=== PATIENT | female | born 2000 | race Caucasian/White ===

== ENCOUNTER 2022-05-03 08:44 | Day surgery (SDC) | payer BC, SELFPAY ==
[2022-05-03] VITALS (13 sets, daily range): BP systolic 98–126; BP diastolic 49–78; PULSE 66–80; RESP 12–18; TEMP 36.2–36.8; O2SAT 98–100; BMI 23.4
[2022-05-03] MEDS: LACTATED RINGERS 1000 ML 1,000 ML 100 ML IV (09:26)
[2022-05-03] MEDS: ETHYL CHLORIDE 1 APPLICATION 1 APPLIC TOPICAL (09:28)
[2022-05-03] MEDS: SODIUM CHLORIDE 0.9 % (FLUSH) 10 ML SYRINGE IVF (09:28)
[2022-05-03 09:34] LABS: HCG Qualitative* Negative (Negative)
--- NOTE | 2022-05-03 11:04 | W.PM.ENTPROC ---
Procedure Note Date of procedure: 05/03/22 Procedure: Preoperative diagnosis chronic tonsillitis, cryptic tonsils, tonsillar hypertrophy Postoperative diagnosis same Procedure tonsillectomy Under general tracheal anesthesia patient was prepped and draped in usual fashion. The McIvor mouth gag was inserted the tongue retracted forward. The right and left tonsil were removed with a combination of needlepoint and Coblation cautery. There was minimal bleeding and all bleeding was controlled with Coblation. The nasopharynx was inspected and there is no significant adenoid tissue. The membranous tip of the uvula was amputated to prevent swelling. The patient tolerated procedure well was taken recovery in satisfactory condition. Blood loss was less than 10 mL. There were no complications Surgeon: Waqar Pandya MD
--- NOTE | 2022-05-03 11:15 | W.ANESCHARGE ---
Anesthesia Charges Start Date/Time Anesthesia Start Date: 05/03/22 Anesthesia Start Time: 10:32 Stop Date/Time Anesthesia Stop Date: 05/03/22 Anesthesia Stop Time: 11:14 Summary Emergency: No
--- NOTE | 2022-05-03 11:20 | W.ANESCHARGE ---
Anesthesia Charges Start Date/Time Anesthesia Start Date: 05/03/22 Anesthesia Start Time: 10:32 Stop Date/Time Anesthesia Stop Date: 05/03/22 Anesthesia Stop Time: 11:14 Summary Emergency: No
[2022-05-03] MEDS: IBUPROFEN 100 MG/5 ML SUSP 200 MG PO (12:05)
[2022-05-03] MEDS: ACETAMINOPHEN SUSPENSION 1 BOTTLE 320 MG PO (12:05)
== END 2022-05-03 13:32 | disposition home or self-care (01) ==
PROVIDERS: Anesthesiology; Visit Provider Otolaryngology
PROC: (CPT 42826; principal; 2022-05-03 10:30)
DX: J35.01 Chronic tonsillitis (principal)
CPT/HCPCS: 42826; 00170; 84703; 88304; A9270; J0330; J1100; J2250; J2405; J2704; J3010; J7120

== ENCOUNTER 2022-05-04 18:20 | Emergency (ER) | payer BC, SELFPAY ==
[2022-05-04 18:25] VITALS: BP 126/75; PULSE 100; RESP 18; TEMP 37.3; O2SAT 96
--- NOTE | 2022-05-04 18:40 | ED.GENADULT ---
HPI - General Adult General Chief complaint: Post Op Complication Stated complaint: Post Op Bleeding Time Seen by Provider: 05/04/22 18:24 History of Present Illness HPI narrative: This 22-year-old female had a tonsillectomy done yesterday. She called Ear Nose and Throat physician today because of some blood in the back of her throat. She was instructed to come in here for evaluation. I did receive a phone call from Dr. Tellez in this regard. The patient arrives here with normal vital signs but in discomfort as would be expected post tonsillectomy. She is not having any active bleeding currently. Related Data Home Medications Medication Instructions Recorded Confirmed albuterol sulfate 90 mcg/actuation 1 inh inhalation Q4-6H PRN 05/01/22 05/03/22 aerosol inhaler bupropion HCl 150 mg 24 hr tablet, 150 mg PO DAILY 05/01/22 05/03/22 extended release (Wellbutrin XL) melatonin 10 mg capsule 10 mg PO HS PRN 05/01/22 05/03/22 sertraline 100 mg tablet (Zoloft) 200 mg PO DAILY 05/01/22 05/03/22 Previous Rx's Medication Instructions Recorded ondansetron 4 mg disintegrating 4 mg PO Q8H #10 tabs 05/03/22 tablet oxycodone 5 mg/5 mL oral solution 7 mg (7 mL) PO Q4-6H PRN pain #250 05/03/22 mL Allergies Allergy/AdvReac Type Severity Reaction Status Date / Time No Known Drug Allergies Allergy Verified 05/03/22 09:03 Review of Systems Status of ROS: Reports: 10 or more systems reviewed and unremarkable except as noted in History and below Narrative: Constitutional: No fevers, no weight gain or loss. Eyes: No discharge. No vision changes. HENT: Sore throat status post tonsillectomy. She reports some bleeding prior to arrival. Cardiovascular: No chest pain, no palpitations. Respiratory: No shortness of breath, no wheezes, no cough. Gastrointestinal: No abdominal pain, no vomiting, no diarrhea. Genitourinary: No dysuria, no hematuria. Musculoskeletal: Normal range of motion. Skin: No rashes, no pruritis. Neurological: No dizziness, weakness, sensory change, speech change. Endo/Heme/Allergies: No bruising or bleeding. No polydipsia. Pysch: no suicidality, no anxiety, no insomnia. All other systems reviewed and are negative. [facility] Medical History (Updated 05/04/22 @ 18:44 by Tonio Latif MD) Exercise-induced asthma Generalized anxiety disorder Social History How often do you have a drink containing alcohol: monthly or less How many standard drinks containing alcohol do you have on a typical day: 1 or 2 AUDIT-C Alcohol total score: 1 Non-prescribed substance use: denies use Caffeine: Yes (1 DAILY) Are you using contraception or practicing any form of control: No Exam Narrative: Exam Narrative: Constitutional: Well-developed, well-nourished, no acute distress. HEENT: Normocephalic, atraumatic. Oropharynx shows normal scarring in the posterior oropharynx status post tonsillectomy. There is no sign of active bleeding or presence of any clotting. Neck: Normal range of motion. Nontender. Supple. Heart: Intact distal pulses. Lungs: No chest discomfort. No wheezes, rhonchi, or rales. Abdomen: Nontender. Back: Normal range of motion. Extremities: Normal range of motion. No injury. Skin: Intact. No rash. Warm. No erythema or pallor. Neurologic: No altered sensation. No weakness. Alert and oriented. Psychiatric: No suicidality. No anxiety or depression. No insomnia. Nursing notes and vitals signs are reviewed. Const: Vital Signs, click to edit/add: Vital Signs - 24 hr 05/04/22 18:25 Temperature 99.2 F Pulse Rate [Right Pulse Oximeter] 100 Respiratory Rate 18 Blood Pressure [Ri ght Upper Arm] 126/75 Pulse Oximetry 96 Oxygen Delivery Me thod Room Air Course Vital Signs Vital signs: Initial Vital Signs Temperature 99.2 F 05/04/22 18:25 Temperature Source Temporal Artery Scan 05/04/22 18:25 Pulse Rate 100 05/04/22 18:25 Respiratory Rate 18 05/04/22 18:25 Blood Pressure 126/75 05/04/22 18:25 Blood Pressure Mean 92 05/04/22 18:25 Blood Pressure Position Sitting 05/04/22 18:25 Pulse Oximetry 96 05/04/22 18:25 Oxygen Delivery Method 05/04/22 18:25 Vital Signs Temperature 99.2 F 05/04/22 18:25 Pulse Rate 100 05/04/22 18:25 Respiratory Rate 18 05/04/22 18:25 Blood Pressure 126/75 05/04/22 18:25 Pulse Oximetry 96 05/04/22 18:25 Oxygen Delivery Method 05/04/22 18:25 Temperature 99.2 F 05/04/22 18:25 Pulse Rate 100 05/04/22 18:25 Respiratory Rate 18 05/04/22 18:25 Blood Pressure 126/75 05/04/22 18:25 Pulse Oximetry 96 05/04/22 18:25 Oxygen Delivery Method 05/04/22 18:25 Medical Decision Making MDM Narrative Medical decision making narrative: This patient comes in for evaluation of bleeding status post tonsillectomy. She is not showing any sign of active bleeding and does not have any clot present. Ear Nose and Throat physician stated that if this was the case she could be observed for about an hour and then return home. She did receive an intramuscular injection of morphine 10 mg for additional pain relief. Discharge Plan Discharge Clinical Impression: Postoperative haemorrhage of tonsil Patient Disposition: Home, Self-Care Condition: Stable Additional Instructions: Continue current plans. Take medication as needed and indicated. Follow up with MD or return if worsening. Prescriptions: No Action albuterol sulfate 90 mcg/actuation HFA aerosol inhaler 1 inh inhalation Q4-6H PRN bupropion HCl [Wellbutrin XL] 150 mg tablet extended release 24 hr 150 mg PO DAILY melatonin 10 mg capsule 10 mg PO HS PRN sertraline [Zoloft] 100 mg tablet 200 mg PO DAILY oxycodone 5 mg/5 mL solution 7 mg PO Q4-6H PRN (Reason: pain) Qty: 250 0RF ondansetron 4 mg tablet,disintegrating 4 mg PO Q8H Qty: 10 0RF Follow Up/Referrals: Provider,Not a Local [Primary Care Provider] - Stand Alone Forms: [employer] Info Instructions
[2022-05-04] MEDS: MORPHINE 10 MG/ML inj IM (18:45)
== END 2022-05-04 19:51 | disposition home or self-care (01) ==
PROVIDERS: Emergency Provider Emergency Medicine Emergency Medical Services
DX: G89.18 Other acute postprocedural pain (principal)
CPT/HCPCS: 96372; 99284; J2270